=== PATIENT | male | born 1980 | race Caucasian/White ===

== ENCOUNTER 2017-01-11 08:11 | Emergency (ER) | payer OTHER ==
[~2017-01-11] VITALS: Ht 193 cm; Wt 83.9 kg
[2017-01-11 08:22] VITALS: BP 130/74
[2017-01-11] MEDS ORDERED: Lidocaine 1% MPF 10mg/ml 5ml ONE (08:26)
[2017-01-11] MEDS ORDERED: Tetanus/Diptheria/Pertussis Vaccine 0.5ml Syr IM ONE (08:30)
--- NOTE | 2017-01-11 08:36 | Emergency Room Report ---
History of Present Illness General Chief Complaint: Laceration Source: Patient Present Illness HPI Patient is a 36-year-old male presented after having increased injury to his left hand. Injury occurred approximately the laboratory arrival. Patient stated he was cutting meat with a boning knife when he accidentally cut his left hand in the web space between the thumb and index finger Allergies: Coded Allergies: No Known Allergies (Unverified , 01/11/17) Patient History Past Medical History: see triage record Reviewed Nursing Documentation: PMH: Agreed, PSxH: Agreed Nursing Documentation-PMH Hx COPD: Yes Review of Systems All Other Systems: negative except mentioned in HPI Physical Exam Vital Signs Date Time Temp Pulse Resp B/P Pulse Ox O2 Delivery O2 Flow Rate FiO2 01/11/17 08:16 97.7 74 14 130/74 95 Room Air General Appearance: well appearing, no apparent distress Head: normocephalic, atraumatic ENT: hearing grossly normal, normal voice Neck: full range of motion, supple Respiratory: no respiratory distress, speaking full sentences Gastrointestinal: normal inspection Musculoskeletal: no calf tenderness, other - laceration 0.5 cm laceration to dorsum of webspac Neurologic: normal gait Psychiatric: mood/affect normal Skin: no rash Procedures Laceration/Wound Repair Laceration/Wound Repair : Consent: Verbal Wound Location: upper extremity Wound's Depth, Shape: into muscle Wound Length (cm): 0 Wound Explored: clean Irrigated w/ Saline (ccs): 50 Betadine Prep?: Yes Anesthesia: 1% Lidocaine Volume Anesthetic (ccs): 2 Wound Debrided: minimal Wound Repaired With: sutures Number of Sutures: 2 Layer Closure?: No Sterile Dressing Applied?: Yes Patient Tolerated: Well Complications: None Medical Decision Making Diagnostic Impression: Primary Impression: Laceration ER Course Patient presented for laceration. Differential diagnoses included foreign body , nerve injury, arterial injury among others. The wound is irrigated and closed with absorbable suture. Patient's tetanus is up-to-date.patient placed on light duty.Patient was advised wound check in the next 2-3 days. Last Vital Signs Date Time Temp Pulse Resp B/P Pulse Ox O2 Delivery O2 Flow Rate FiO2 01/11/17 08:22 97.7 79 14 130/74 98 Room Air Status: improved Disposition: HOME, SELF-CARE Condition: Stable Fransisco Sarah Jan 11, 2017 08:36
[2017-01-11] MEDS ORDERED: IBUPROFEN600 MG ORAL (08:37)
[2017-01-11] MEDS ORDERED: BACITRACIN ZIN1 EACH TOPIC (08:37)
[2017-01-11] MEDS ORDERED: Lidocaine 1% MPF 10mg/ml 5ml INJ ONE (08:45)
[2017-01-11] MEDS ORDERED: Bacitracin Oint UD TOPIC ONE (08:45)
[2017-01-11 08:55] VITALS: BP 130/74
== END 2017-01-11 08:59 | disposition home or self-care (01) ==
LOC: EMR 08:35
DX: S61.412A Laceration without foreign body of left hand, initial encounter (principal); J44.9 Chronic obstructive pulmonary disease, unspecified; W26.0XXA Contact with knife, initial encounter; Y93.G9 Activity, other involving cooking and grilling; Y92.512 Supermarket, store or market as the place of occurrence of the external cause; Y99.0 Civilian activity done for income or pay
CPT/HCPCS: 90471; 90715